=== PATIENT | male | born 1995 | race Caucasian/White ===

== ENCOUNTER → 2017-06-14 | Outpatient (CLI) | payer OTHER ==
--- NOTE | 2017-06-14 09:22 | RADIOLOGY REPORT (SQ) ---
EXAM DESCRIPTION: U/S LTD DUPLEX ART/ALECIA FLOW COMPLETED DATE/TIME: 06/14/2017 7:57 am REASON FOR STUDY: HTN (I10) COMPARISON: None. TECHNIQUE: Realtime and static grayscale images acquired. Selected color Doppler, velocities and spe ctral images recorded. LIMITATIONS: Renal artery origins difficult to evaluate due to midline bowel gas FINDINGS: RIGHT KIDNEY: RENAL ARTERY VELOCITIES: At the hilum, 90 cm/sec. Segmental artery velocity 69 cm/sec. RENAL VEIN: Color doppler flow present, patent. VELOCITY RATIO: 0.86. Normal waveforms. KIDNEY: Normal size, 10.3 cm in length. No significant pathology. LEFT KIDNEY: RENAL ARTERY VELOCITIES: At the hilum, 103 cm/sec. Segmental artery velocity 63 cm/sec. RENAL VEIN: Color doppler flow present, patent. VELOCITY RATIO: 1.0. Normal waveforms. KIDNEY: Normal size, 11.5 cm in length No significant pathology. BLADDER: Decompressed. No stones OTHER: No other significant finding. IMPRESSION: NO DOPPLER EVIDENCE OF HEMODYNAMICALLY SIGNIFICANT RENAL ARTERY STENOSIS. COMMENT: NORMAL RENAL ARTERY/AORTA VELOCITY RATIO IS LESS THAN OR EQUAL TO 3.5. TECHNICAL DOCUMENTATION: JOB ID: [id number] [email or web address] Rights Reserved
== END ==
LOC: RAD 07:14
PROVIDERS: ATTEND Internal Medicine Cardiovascular Disease
DX: I70.1 Atherosclerosis of renal artery (principal)
CPT/HCPCS: 93976